=== PATIENT | female | born 1970 | race Caucasian/White ===

== ENCOUNTER → 2019-10-23 | Outpatient (CLI) | payer MEDICAID ==
--- NOTE | 2019-10-23 18:50 | Diagnostic Imaging Report ---
PROCEDURE: MR imaging cervical spine without contrast. TECHNIQUE: Multiplanar, multisequence MR imaging of the cervical spine was performed without contrast. DATE: October 23, 2019. COMPARISON: None. INDICATION: 48-year-old female, chronic neck pain. History of breast cancer. FINDINGS: The alignment of the cervical spine is unremarkable. There is no evidence of a diffuse marrow infiltrating or replacing process. There is a low signal lesion involving the right side of the C4 vertebral body on axial T2 sequence image 11, measuring 6 x 5 x 6 mm in size. This is not specific. There is no additional identified bone lesion. The visualized spinal cord is unremarkable. There is very mild disc height loss at C5-C6. C2-C3: There is no disc bulge. The uncovertebral and facet joints are unremarkable. There is no foraminal narrowing. There is no spinal canal stenosis. C3-C4: There is no disc bulge. The uncovertebral and facet joints are unremarkable. There is no foraminal narrowing. There is no spinal canal stenosis. C4-C5: There is no disc bulge. There are mild right uncovertebral degenerative changes. There is no foraminal narrowing. There is no spinal canal stenosis. C5-C6: There is a small posterior disc osteophyte complex. There are left greater than right uncovertebral degenerative changes. There is severe left and mild to moderate right foraminal narrowing. There is mild spinal canal stenosis. C6-C7: There is a small posterior disc osteophyte complex. The uncovertebral and facet joints are unremarkable. There is no foraminal narrowing. There is no spinal canal stenosis. C7-T1: There is no disc bulge. The uncovertebral and facet joints are unremarkable. There is no foraminal narrowing. There is no spinal canal stenosis. IMPRESSION: 1. Low signal lesion, measuring 6 x 5 x 6 mm in size involving the right side of the C4 vertebral body which is without adjacent marrow edema. This is nonspecific. Recommend comparison with prior imaging, if available. If comparison imaging is not available, further evaluation with CT without contrast is recommended. 2. Disc and uncovertebral degenerative changes of the cervical spine most notable at C5-C6 where there is severe left and mild to moderate right foraminal narrowing and mild spinal stenosis. Dictated by: Dictated on workstation # [id number]
== END ==
LOC: RAD 12:47
PROVIDERS: ATTEND Internal Medicine
DX: M47.22 Other spondylosis with radiculopathy, cervical region (principal); M50.122 Cervical disc disorder at C5-C6 level with radiculopathy; M48.02 Spinal stenosis, cervical region
CPT/HCPCS: 72141

== ENCOUNTER → 2020-02-22 | Outpatient (CLI) | payer MEDICAID ==
--- NOTE | 2020-02-22 12:29 | Diagnostic Imaging Report ---
INDICATION: MEDICATION MONITORING. TECHNIQUE: Single view chest 11:22 AM. CORRELATION STUDY: None FINDINGS: The heart size, mediastinal configuration and pulmonary vascularity are within normal limits. Left subclavian Wpllit-h-[id number] catheter tip projects over the expected location SVC. The lungs are clear with no consolidating infiltrate. There is no significant effusion or pneumothorax. IMPRESSION: 1. Negative for acute abnormality of the chest. Dictated by: Dictated on workstation # [id number]
== END ==
LOC: RAD 11:05
DX: Z51.81 Encounter for therapeutic drug level monitoring (principal)
CPT/HCPCS: 71045

== ENCOUNTER → 2020-07-15 | Outpatient (CLI) | payer MEDICAID | LOC: LABNPT 05:48 | PROVIDERS: ATTEND Surgery | DX: Z20.822 Contact with and (suspected) exposure to COVID-19 (principal) | CPT/HCPCS: 87635 ==

== ENCOUNTER 2020-07-27 12:04 | Outpatient (RCR) | payer MEDICAID | END 2020-07-28 | disposition home or self-care (01) | LOC: ONC 12:04 | PROVIDERS: ATTEND Internal Medicine Hematology & Oncology | DX: Z45.2 Encounter for adjustment and management of vascular access device (principal); L73.2 Hidradenitis suppurativa; I10 Essential (primary) hypertension; Z90.13 Acquired absence of bilateral breasts and nipples; Z92.21 Personal history of antineoplastic chemotherapy; Z92.3 Personal history of irradiation; Z85.3 Personal history of malignant neoplasm of breast | CPT/HCPCS: 96523; G0463 ==

== ENCOUNTER → 2020-10-31 | Outpatient (CLI) | payer MEDICAID ==
[~2020-10-31] MED LIST: HOLD METFORMIN - RECEIVED CONTRAST 20 ML VIAL IV SCH; IOHEXOL 350 MG/ML 100 ML (OMNIPAQUE 350) VIAL IV ONE; NS 100 ML (IVPB) BAG IV ONE
--- NOTE | 2020-10-31 13:27 | Diagnostic Imaging Report ---
PROCEDURE; CT pelvis with and without contrast. TECHNIQUE: After oral contrast administration, imaging was obtained from the iliac crest to the lesser trochanters. Repeat imaging was performed after intravenous contrast administration. Auto Exposure Controls were utilized during the CT exam to meet ALARA standards for radiation dose reduction. INDICATION: History of breast cancer, history of a perirectal/perianal abscess as well as a lesion in the left labia. Pre and post IV contrast-enhanced pelvic CT performed. FINDINGS: The urinary bladder is unremarkable. The uterus is absent or atrophic, and there is no adnexal lesion. There is some stool within the pelvic large bowel loop segments. The visualized fecal load volume is not pathologic, and the visualized pelvic small bowel loops are nondilated. No air-fluid level. No pneumatosis or free gas. There are no findings of diverticulitis. No suspicious lytic or sclerotic bony lesion. No osseous destructive process. Curvilinear metallic surgical opacities project perianal, left of midline, just ventral to the curvilinear radiopacities and found to the level of the caudal aspect of the ischium. There is a small gas/fluid collection measuring a diameter of 2.6 cm, suspect for abscess. The fat in the ischiorectal fossa and medial gluteal fold show some stranding and likely scarring. Additional elements of active inflammation could not be excluded. There is an ipsilateral left inguinal lymph node, elongated, without morphological distortion, prominent and likely reactive, medial to the neurovascular bundle. It measured 3.2 x 1.2 cm. The right inguinal canal was normal. Small left pelvic lymph node in the obturator chain measured about 7 mm. Remaining side cortes appeared normal. There was no adnexal lesion. There is no free air. IMPRESSION: Postsurgical changes to the perineum. Left paramedian preanal gas/fluid collection, presumed abscess, with some mild regional left obturator and inguinal reactive adenopathy. No identifiable intralabial mass effect appreciable at CT, and the pelvic hollow viscus is unobstructed, nonfocal, and nonacute. Dictated by: Dictated on workstation # [id number]
== END ==
LOC: RAD 13:15
PROVIDERS: ATTEND Obstetrics & Gynecology
DX: K61.1 Rectal abscess (principal); Z85.3 Personal history of malignant neoplasm of breast
CPT/HCPCS: 72194

== ENCOUNTER 2020-11-24 13:19 | Outpatient (RCR) | payer MEDICAID ==
[2020-10-13 14:10] LABS: BASOPHILS # (AUTO) 0.1 10^3/uL (0.0-0.1); BASOPHILS % (AUTO) 1 % (0-10); EOSINOPHILS # (AUTO) 0.2 10^3/uL (0.0-0.3); EOSINOPHILS % (AUTO) 2 % (0-10); HEMATOCRIT 49 % (35-52); HEMOGLOBIN 16.2 g/dL (11.5-16.0); LYMPHOCYTES # (AUTO) 1.3 10^3/uL (1.0-4.0); LYMPHOCYTES % (AUTO) 10 % (12-44); MEAN CORPUSCULAR HEMOGLOBIN 30 pg (25-34); MEAN CORPUSCULAR HGB CONC 33 g/dL (32-36); MEAN CORPUSCULAR VOLUME 89 fL (80-99); MEAN PLATELET VOLUME 9.3 fL (9.0-12.2); MONOCYTES # (AUTO) 0.7 10^3/uL (0.0-1.0); MONOCYTES % (AUTO) 5 % (0-12); NEUTROPHILS # (AUTO) 10.5 10^3/uL (1.8-7.8); NEUTROPHILS % (AUTO) 82 % (42-75); PLATELET COUNT 297 10^3/uL (130-400); WHITE BLOOD COUNT 12.8 10^3/uL (4.3-11.0)
[2020-10-13 14:33] LABS: ALANINE AMINOTRANSFERASE 27 U/L (0-55); ALBUMIN 4.5 GM/DL (3.2-4.5); ALKALINE PHOSPHATASE 76 U/L (40-136); BILIRUBIN,TOTAL 0.4 MG/DL (0.1-1.0); BUN/CREATININE RATIO 8; CARBON DIOXIDE 22 MMOL/L (21-32); CHLORIDE 104 MMOL/L (98-107); CREATININE SERUM 0.77 MG/DL (0.60-1.30); GFR ESTIMATED > 60; GLUCOSE 105 MG/DL (70-105); POTASSIUM 3.8 MMOL/L (3.6-5.0); SODIUM 138 MMOL/L (135-145)
== END 2020-12-06 | disposition home or self-care (01) ==
LOC: ONC 13:19
PROVIDERS: ATTEND Internal Medicine Hematology & Oncology
DX: Z45.2 Encounter for adjustment and management of vascular access device (principal); L73.2 Hidradenitis suppurativa; I10 Essential (primary) hypertension; F17.210 Nicotine dependence, cigarettes, uncomplicated; Z90.13 Acquired absence of bilateral breasts and nipples; Z92.21 Personal history of antineoplastic chemotherapy; Z92.3 Personal history of irradiation; Z85.3 Personal history of malignant neoplasm of breast; Z79.899 Other long term (current) drug therapy
CPT/HCPCS: 36591; 80053; 85025; 96523

== ENCOUNTER → 2021-01-05 | Outpatient (CLI) | payer MEDICAID ==
[2021-01-05 13:40] LABS: HEMATOCRIT 49 % (35-52); MEAN CORPUSCULAR HEMOGLOBIN 30 pg (25-34); MEAN CORPUSCULAR HGB CONC 34 g/dL (32-36); MEAN CORPUSCULAR VOLUME 87 fL (80-99); MEAN PLATELET VOLUME 8.7 fL (9.0-12.2); PLATELET COUNT 338 10^3/uL (130-400); WHITE BLOOD COUNT 10.6 10^3/uL (4.3-11.0)
[2021-01-05 14:02] LABS: ALBUMIN 4.4 GM/DL (3.2-4.5); BILIRUBIN,TOTAL 0.5 MG/DL (0.1-1.0); CALCIUM 9.8 MG/DL (8.5-10.1); CREATININE SERUM 0.74 MG/DL (0.60-1.30); TOTAL PROTEIN 8.3 GM/DL (6.4-8.2)
== END ==
LOC: LAB 13:06
DX: Z51.81 Encounter for therapeutic drug level monitoring (principal)
CPT/HCPCS: 36415; 80053; 85027; 86480

== ENCOUNTER 2021-04-03 13:07 | Outpatient (RCR) | payer MEDICAID | END 2021-04-05 | disposition home or self-care (01) | LOC: ONC 13:07 | PROVIDERS: ATTEND Internal Medicine Hematology & Oncology | DX: Z45.2 Encounter for adjustment and management of vascular access device (principal); I10 Essential (primary) hypertension; Z90.13 Acquired absence of bilateral breasts and nipples; Z92.21 Personal history of antineoplastic chemotherapy; Z92.3 Personal history of irradiation; Z85.3 Personal history of malignant neoplasm of breast | CPT/HCPCS: 36591; 96523 ==

== ENCOUNTER 2021-05-11 13:25 | Outpatient (RCR) | payer MEDICAID | END 2021-05-15 | disposition home or self-care (01) | LOC: ONC 13:25 | PROVIDERS: ATTEND Internal Medicine Hematology & Oncology | DX: Z45.2 Encounter for adjustment and management of vascular access device (principal); I10 Essential (primary) hypertension; Z90.13 Acquired absence of bilateral breasts and nipples; Z92.21 Personal history of antineoplastic chemotherapy; Z92.3 Personal history of irradiation; Z85.3 Personal history of malignant neoplasm of breast | CPT/HCPCS: 96523 ==

== ENCOUNTER 2021-06-22 12:34 | Outpatient (RCR) | payer MEDICARE, MEDICAID | END 2021-07-13 | disposition home or self-care (01) | LOC: ONC 12:34 | PROVIDERS: ATTEND Internal Medicine Hematology & Oncology | DX: Z45.2 Encounter for adjustment and management of vascular access device (principal); I10 Essential (primary) hypertension; Z90.13 Acquired absence of bilateral breasts and nipples; Z92.21 Personal history of antineoplastic chemotherapy; Z92.3 Personal history of irradiation; Z85.3 Personal history of malignant neoplasm of breast | CPT/HCPCS: 96523 ==

== ENCOUNTER 2021-08-07 12:47 | Outpatient (RCR) | payer OTHER, MEDICARE, MEDICAID | END 2021-08-12 | disposition home or self-care (01) | LOC: ONC 12:47 | PROVIDERS: ATTEND Internal Medicine Hematology & Oncology | DX: Z45.2 Encounter for adjustment and management of vascular access device (principal); I10 Essential (primary) hypertension; Z90.13 Acquired absence of bilateral breasts and nipples; Z92.21 Personal history of antineoplastic chemotherapy; Z92.3 Personal history of irradiation; Z85.3 Personal history of malignant neoplasm of breast | CPT/HCPCS: 96523 ==

== ENCOUNTER 2021-09-14 13:16 | Outpatient (RCR) | payer MEDICARE, MEDICAID | END 2021-10-12 | disposition home or self-care (01) | LOC: ONC 13:16 | PROVIDERS: ATTEND Internal Medicine Hematology & Oncology | DX: Z45.2 Encounter for adjustment and management of vascular access device (principal); I10 Essential (primary) hypertension; Z90.13 Acquired absence of bilateral breasts and nipples; Z92.21 Personal history of antineoplastic chemotherapy; Z92.3 Personal history of irradiation; Z85.3 Personal history of malignant neoplasm of breast | CPT/HCPCS: 96523 ==

== ENCOUNTER 2021-10-26 13:49 | Outpatient (RCR) | payer MEDICARE, MEDICAID | END 2021-11-12 | disposition home or self-care (01) | LOC: ONC 13:49 | PROVIDERS: ATTEND Internal Medicine Hematology & Oncology | DX: Z45.2 Encounter for adjustment and management of vascular access device (principal); C50.912 Malignant neoplasm of unspecified site of left female breast; I10 Essential (primary) hypertension; Z90.13 Acquired absence of bilateral breasts and nipples; Z92.21 Personal history of antineoplastic chemotherapy; Z92.3 Personal history of irradiation | CPT/HCPCS: 96523; G0463 ==

== ENCOUNTER 2021-12-07 13:10 | Outpatient (RCR) | payer MEDICARE, MEDICAID | END 2021-12-13 | disposition home or self-care (01) | LOC: ONC 13:10 | PROVIDERS: ATTEND Internal Medicine Hematology & Oncology | DX: C50.912 Malignant neoplasm of unspecified site of left female breast (principal); I10 Essential (primary) hypertension; Z90.13 Acquired absence of bilateral breasts and nipples; Z92.21 Personal history of antineoplastic chemotherapy; Z92.3 Personal history of irradiation ==

== ENCOUNTER 2022-01-18 12:47 | Outpatient (RCR) | payer MEDICARE, MEDICAID | END 2022-02-12 | disposition home or self-care (01) | LOC: ONC 12:47 | PROVIDERS: ATTEND Internal Medicine Hematology & Oncology | DX: C50.912 Malignant neoplasm of unspecified site of left female breast (principal); I10 Essential (primary) hypertension; Z90.13 Acquired absence of bilateral breasts and nipples; Z92.21 Personal history of antineoplastic chemotherapy; Z92.3 Personal history of irradiation; Z45.2 Encounter for adjustment and management of vascular access device | CPT/HCPCS: 96523 ==

== ENCOUNTER 2022-03-01 13:00 | Outpatient (RCR) | payer MEDICARE, MEDICAID | END 2022-03-14 | disposition home or self-care (01) | LOC: ONC 13:00 | PROVIDERS: ATTEND Internal Medicine Hematology & Oncology | DX: Z45.2 Encounter for adjustment and management of vascular access device (principal); C50.912 Malignant neoplasm of unspecified site of left female breast; I10 Essential (primary) hypertension; Z90.13 Acquired absence of bilateral breasts and nipples; Z92.21 Personal history of antineoplastic chemotherapy; Z92.3 Personal history of irradiation | CPT/HCPCS: 96523 ==

== ENCOUNTER 2022-04-12 12:46 | Outpatient (RCR) | payer MEDICARE, MEDICAID | END 2022-04-14 | LOC: ONC 12:46 | PROVIDERS: ATTEND Internal Medicine Hematology & Oncology | DX: Z45.2 Encounter for adjustment and management of vascular access device (principal); C50.912 Malignant neoplasm of unspecified site of left female breast; I10 Essential (primary) hypertension; Z90.13 Acquired absence of bilateral breasts and nipples; Z92.21 Personal history of antineoplastic chemotherapy; Z92.3 Personal history of irradiation | CPT/HCPCS: 96523 ==

== ENCOUNTER 2022-05-29 11:15 | Outpatient (RCR) | payer MEDICARE, MEDICAID | END 2022-06-12 | disposition home or self-care (01) | LOC: ONC 11:15 | PROVIDERS: ATTEND Internal Medicine Hematology & Oncology | DX: Z45.2 Encounter for adjustment and management of vascular access device (principal); C50.912 Malignant neoplasm of unspecified site of left female breast; I10 Essential (primary) hypertension; Z90.13 Acquired absence of bilateral breasts and nipples; Z92.21 Personal history of antineoplastic chemotherapy; Z92.3 Personal history of irradiation ==

== ENCOUNTER 2022-07-05 12:34 | Outpatient (RCR) | payer MEDICARE, MEDICAID | END 2022-07-13 | disposition home or self-care (01) | LOC: ONC 12:34 | PROVIDERS: ATTEND Internal Medicine Hematology & Oncology | DX: Z45.2 Encounter for adjustment and management of vascular access device (principal); C50.912 Malignant neoplasm of unspecified site of left female breast; I10 Essential (primary) hypertension; Z90.13 Acquired absence of bilateral breasts and nipples; Z92.21 Personal history of antineoplastic chemotherapy; Z92.3 Personal history of irradiation | CPT/HCPCS: 96523 ==

== ENCOUNTER 2022-08-17 10:09 | Outpatient (RCR) | payer MEDICARE, MEDICAID | END 2022-09-12 | disposition home or self-care (01) | LOC: ONC 10:09 | PROVIDERS: ATTEND Internal Medicine Hematology & Oncology | DX: Z45.2 Encounter for adjustment and management of vascular access device (principal); D05.12 Intraductal carcinoma in situ of left breast; I10 Essential (primary) hypertension; K64.9 Unspecified hemorrhoids | CPT/HCPCS: 96523 ==

== ENCOUNTER 2022-09-27 12:58 | Outpatient (RCR) | payer MEDICARE, MEDICAID | END 2022-10-12 | disposition home or self-care (01) | LOC: ONC 12:58 | PROVIDERS: ATTEND Internal Medicine Hematology & Oncology | DX: Z45.2 Encounter for adjustment and management of vascular access device (principal); D05.12 Intraductal carcinoma in situ of left breast; I10 Essential (primary) hypertension; K64.9 Unspecified hemorrhoids | CPT/HCPCS: 96523 ==

== ENCOUNTER 2022-11-08 12:52 | Outpatient (RCR) | payer MEDICARE, MEDICAID ==
[2022-11-08 13:25] LABS: BASOPHILS # (AUTO) 0.1 10^3/uL (0.0-0.1); BASOPHILS % (AUTO) 1 % (0-10); EOSINOPHILS # (AUTO) 0.1 10^3/uL (0.0-0.3); EOSINOPHILS % (AUTO) 1 % (0-10); HEMATOCRIT 46 % (35-52); HEMOGLOBIN 15.7 g/dL (11.5-16.0); LYMPHOCYTES # (AUTO) 1.8 10^3/uL (1.0-4.0); LYMPHOCYTES % (AUTO) 22 % (12-44); MEAN CORPUSCULAR HEMOGLOBIN 30 pg (25-34); MEAN CORPUSCULAR HGB CONC 34 g/dL (32-36); MEAN CORPUSCULAR VOLUME 89 fL (80-99); MEAN PLATELET VOLUME 9.3 fL (9.0-12.2); MONOCYTES # (AUTO) 0.4 10^3/uL (0.0-1.0); MONOCYTES % (AUTO) 5 % (0-12); NEUTROPHILS % (AUTO) 72 % (42-75); PLATELET COUNT 276 10^3/uL (130-400); WHITE BLOOD COUNT 8.4 10^3/uL (4.3-11.0)
[2022-11-08 13:42] LABS: ALBUMIN 4.5 GM/DL (3.2-4.5); BILIRUBIN,TOTAL 0.5 MG/DL (0.1-1.0); CALCIUM 9.9 MG/DL (8.5-10.1); CREATININE SERUM 0.75 MG/DL (0.60-1.30); POTASSIUM 3.7 MMOL/L (3.6-5.0)
== END 2022-11-12 | disposition home or self-care (01) ==
LOC: ONC 12:52
PROVIDERS: ATTEND Internal Medicine Hematology & Oncology
DX: Z45.2 Encounter for adjustment and management of vascular access device (principal); D05.12 Intraductal carcinoma in situ of left breast; I10 Essential (primary) hypertension; K64.9 Unspecified hemorrhoids
CPT/HCPCS: 36415; 80053; 85025; 96523

== ENCOUNTER 2023-01-31 11:19 | Outpatient (RCR) | payer MEDICARE, MEDICAID | END 2023-02-12 | disposition home or self-care (01) | LOC: ONC 11:19 | PROVIDERS: ATTEND Internal Medicine Hematology & Oncology | DX: Z45.2 Encounter for adjustment and management of vascular access device (principal); D05.12 Intraductal carcinoma in situ of left breast; I10 Essential (primary) hypertension; K64.9 Unspecified hemorrhoids; Z90.710 Acquired absence of both cervix and uterus | CPT/HCPCS: 36591 ==

== ENCOUNTER → 2023-03-14 | Outpatient (RCR) | payer MEDICARE, MEDICAID | LOC: ONC 10:49 | PROVIDERS: ATTEND Internal Medicine Hematology & Oncology | DX: D05.12 Intraductal carcinoma in situ of left breast (principal); I10 Essential (primary) hypertension; K64.9 Unspecified hemorrhoids; Z90.710 Acquired absence of both cervix and uterus | CPT/HCPCS: 96523 ==